=== PATIENT | female | born 1955 | race Caucasian/White ===

== ENCOUNTER 2020-07-24 12:03 | Inpatient (IN) | payer OTHER ==
[~2020-07-24] VITALS: Ht 175.3 cm; Wt 72.6 kg
[~2020-07-24 12:03] MED LIST: IRON325 PO; LIPITOR 20 MG T20 M1 PO; LOSARTAN POTAS100 MG PO; OCUVITE LUTEIN1 EAC2 PO; WOMEN MULTIVIT1 EACH PO
[2020-07-24 12:07] VITALS: BP 180/91
[2020-07-24 12:29] LABS: URINE BILIRUBIN NEGATIVE (Negative); URINE BLOOD TRACE (Negative); URINE CLARITY CLEAR; URINE COLOR YELLOW; URINE GLUCOSE-RANDOM* NEGATIVE (Negative); URINE KETONES NEGATIVE (Negative); URINE LEUKOCYTES-REFLEX 1+ (Negative); URINE NITRITE-REFLEX NEGATIVE (Negative); URINE PROTEIN (DIPSTICK) NEGATIVE (Negative); URINE SPECIFIC GRAVITY >= 1.030 (1.005-1.035); URINE UROBILINOGEN 0.2 E.U./dl (0.2-1.0)
[2020-07-24 12:38] LABS: CASTS None Seen /LPF (None Seen); MUCUS >6 Heavy strn/LPF (None Seen); SQUAMOUS >10 Many /LPF (0-3)
[2020-07-24 12:39] LABS: CRYSTALS None Seen /LPF (None Seen); URINE RBC 0-2 Rare /HPF (0-2); URINE WBC-REFLEX 6-15 Few /HPF (0-5)
[2020-07-24 12:46] LABS: AMP/METHAMP Negative (Negative); BARBITURATES Negative (Negative); BENZODIAZEPINES Negative (Negative); COCAINE Negative (Negative); METHADONE Negative (Negative); OPIATES Negative (Negative); PCP Negative (Negative)
[2020-07-24 12:56] LABS: ABSOLUTE NEUTROPHILS 7.3 thou/uL (1.4-8.2); BASOPHILS 0.5 % (0.0-2.0); EOSINOPHILS 0.6 % (0.0-3.0); HEMATOCRIT 38.8 % (37.0-47.0); HEMOGLOBIN 13.6 gm/dL (12.0-15.0); LYMPHOCYTES 16.8 % (24.0-44.0); MCH 31.2 pg (26.0-34.0); MCV 89.2 fL (80.0-100.0); MONOCYTES 7.2 % (1.0-8.0); PLATELET COUNT 270 thou/uL (150-400); POLYS 74.9 % (36.0-66.0); RBC 4.35 mil/uL (4.20-5.00); WBC 9.7 thou/uL (4.0-11.0)
[2020-07-24 13:01] LABS: ANION GAP 13 mmol/L (7-16); BUN 17 mg/dL (7-18); CALCIUM 9.7 mg/dL (8.5-10.1); CHLORIDE 102 mmol/L (98-107); CO2 25 mmol/L (21-32); GLUCOSE 103 mg/dL (74-106); POTASSIUM 4.6 mmol/L (3.5-5.1); SODIUM 140 mmol/L (136-145)
[2020-07-24 13:11] LABS: ALBUMIN 4.2 g/dL (3.4-5.0); DIRECT BILIRUBIN < 0.1 mg/dL (<0.1-0.2); LIPASE 202 U/L (73-393); MAGNESIUM 2.3 mg/dL (1.8-2.4); PHOSPHORUS 4.4 mg/dL (2.6-4.7); SGOT 29 U/L (15-37); SGPT 26 U/L (14-59); TOTAL BILIRUBIN 0.4 mg/dL (0.2-1.0); TROPONIN-I <0.06 ng/mL (<0.06)
[2020-07-24 15:37] VITALS: BP 137/79
[2020-07-24 15:55] LABS: CHOLESTEROL 235 mg/dL (<200); HDL CHOLESTEROL 77 mg/dL (>40); LDL CHOLESTEROL 120 mg/dL (<100); TC:HDL 3.1 Ratio (Not establshd); TRIGLYCERIDE 191 mg/dL (<150); VLDL 38 mg/dL (<40)
[2020-07-24 16:15] VITALS: BP 147/101
[2020-07-24 16:20] LABS: FOLIC ACID 19.6 ng/mL (8.6-58.9)
[2020-07-24 18:09] VITALS: BP 141/78
[2020-07-24 21:07] VITALS: BP 103/71
[2020-07-25 03:05] LABS: GLYCOHEMOGLOBIN (HGB A1C) 5.7 % (4.8-5.6)
[2020-07-25 04:50] VITALS: BP 133/74
--- NOTE | 2020-07-25 07:45 | EKG ---
[address] [place] [address] ELECTROCARDIOGRAM REPORT Name: MARINA DICKINSON Room #: 455-P ADM IN M.R.#: [id number] Admission: 07/24/20 Attend Phys: Amarilis Sharp MD Discharge: Date of : 57 Report #: [id number] [facility] ED Test Date: 2020-07-24 Test Time: 12:33:05 Pat Name: MARINA DICKINSON Department: Room: [facility] Gender: F Field Training Agent: ANA : 1955 Requested By: Dung Bonilla Order Number: [id number] MD: Roc Warren Measurements Intervals [place] Rate: 88 P: 33 MO: 166 QRS: 8 QRSD: 81 T: 32 QT: 369 QTc: 447 Interpretive Statements Sinus rhythm Probable left atrial enlargement Compared to ECG 03/08/2018 18:33:49 No significant changes Electronically Signed On 07-25-2020 7:45:09 [employer] by Roc Warren [email or web address] <ELECTRONICALLY SIGNED> By: Roc Warren MD, [facility] 07/25/20 0745 1233 1233 Roc Warren MD, FACC /EPI
[2020-07-25 08:42] VITALS: BP 124/82
--- NOTE | 2020-07-25 12:31 | 2DMMODE ---
[facility] [place] [address] 2 D/M-MODE ECHOCARDIOGRAM Name: MARINA DICKINSON Room #: 455-P ADM IN .R.#: [id number] Admission: 07/24/20 Attend Phys: Amarilis Sharp MD Discharge: Date of : 57 Report #: [id number] THIS REPORT FOR: cc: Sebastien Howard MD, Rene P. MD Santiago, Patrick MD [facility] ~ APPROVED REPORT Study performed: 07/25/2020 11:38:49 EXAM: Comprehensive 2D, Doppler, and color-flow Echocardiogram Patient Location: Bedside Room #: [facility] Status: routine BSA: 1.88 HR: 89 bpm BP: 124/83 mmHg Rhythm: NSR Other Information Study Quality: Good Indications TIA, HTN, HLP. Echo Enhancing Agent Indication: Rule out Shunt Agent(s) / Amount(s) Used: Agitated Saline 7 cc 2D Dimensions RVDd: 30.22 mm IVSd: 11.17 (7-11mm) LVOT Diam: 21.25 (18-24mm) LVDd: 41.78 mm PWd: 8.10 (7-11mm) LVDs: 26.34 (25-40mm) Aortic Root: 30.32 mm Volumes Left Atrial Volume (Systole) Single Plane 4CH: 55.05 mL Single Plane 2CH: 56.26 mL LA ESV Index: 31.00 mL/m2 Aortic Valve AoV Peak Armando.: 1.59 m/s [facility] [address] [place] [address] 2 D/M-MODE ECHOCARDIOGRAM Name: ALOKMARINA F Room #: 455-P [facility] IN ..#: [id number] Admission: 07/24/20 Attend Phys: Amarilis Sharp MD Discharge: Date of : 57 Report #: [id number] AO Peak Gr.: 10.17 mmHg LVOT Max P.02 mmHg LVOT Max V: 1.12 m/s ABHILASH Vmax: 2.49 cm2 Mitral Valve E/A Ratio: 0.8 MV Decel. Time: 346.86 ms MV E Max Armando.: 0.83 m/s MV A Armando.: 1.10 m/s MV PHT: 100.59 ms IVRT: 69.20 ms Pulmonary Valve PV Peak Armando.: 1.01 m/s PV Peak Gr.: 4.06 mmHg Pulmonary Vein P Vein S: 0.51 m/s P Vein A: 0.28 m/s P Vein D: 0.40 m/s P Vein A Dur.: 114.2 msec P Vein S/D Ratio: 1.27 Tricuspid Valve TR Peak Armando.: 2.43 m/s RAP Estimate: 5.00 mmHg TR Peak Gr.: 24.00 mmHg PA Pressure: 29.00 mmHg Left Ventricle The left ventricle is normal size. There is normal LV segmental wall motion. There is normal left ventricular wall thickness. Left ventricular systolic function is normal. LVEF is 55-60%. Mild diastolic dysfunction is present (impaired relaxation pattern). Right Ventricle The right ventricle is normal size. The right ventricular systolic function is normal. Atria The left atrium size is normal. No shunting noted with contrast bubble injection. The right atrium size is normal. Aortic Valve The aortic valve is normal in structure; mildly sclerotic. No aortic regurgitation is present. There is no aortic valvular stenosis. Mitral Valve [facility] [address] [place] [address] 2 D/M-MODE ECHOCARDIOGRAM Name: MARINA DICKINSON Room #: 455-P ADM IN M.R.#: [id number] Admission: 07/24/20 Attend Phys: Amarilis Sharp MD Discharge: Date of : 57 Report #: [id number] The mitral valve is normal in structure. Mild mitral annular calcification. There is no mitral valve regurgitation noted. No evidence of mitral valve stenosis. Tricuspid Valve The tricuspid valve is normal in structure. Trace tricuspid regurgitation. Estimated PAP is 30mmHg. Pulmonic Valve The pulmonary valve is normal in structure. Trace pulmonic regurgitation. Great Vessels The aortic root is normal in size. Ascending aorta is not well visualized. IVC is normal in size and collapses >50% with inspiration. Pericardium There is no pericardial effusion. <Conclusion> Normal left ventricular size/wall thickness Ejection fraction 60% Grade 1 diastolic function Normal right ventricular size/function Normal atrial size Color-flow Doppler study was performed of the aortic/mitral/tricuspid/pulmonary valve Mild aortic valve calcification without stenosis Mild mitral annular calcification Trace tricuspid valve insufficiency Pulmonary artery systolic pressure estimated 30 mmHg No pericardial effusion Normal aortic root size <ELECTRONICALLY SIGNED> By: Roc Warren MD, FACC 07/25/20 1231 1231 1231 Roc Warren MD, FACC /INF
[2020-07-25 16:27] VITALS: BP 136/72
[2020-07-25 20:14] VITALS: BP 135/83
[2020-07-26 07:26] VITALS: BP 151/96
[2020-07-26 08:25] LABS: MCH 29.9 pg (26.0-34.0); MCHC 33.3 g/dL (28.0-37.0); MCV 89.9 fL (80.0-100.0); RBC 3.89 mil/uL (4.20-5.00); WBC 6.2 thou/uL (4.0-11.0)
[2020-07-26 08:26] LABS: CALCIUM 8.4 mg/dL (8.5-10.1)
[2020-07-26 08:27] LABS: HEMOGLOBIN 11.6 gm/dL (12.0-15.0)
[2020-07-26] MEDS ORDERED: ADULT LOW DOSE81 MG PO (10:05)
[2020-07-26 12:52] VITALS: BP 151/96
[2020-07-26] MEDS ORDERED: KEFLEX500 M1 PO (15:51)
--- NOTE | 2020-08-03 03:46 | HC ---
[facility] [place] [address] CONSULTATION Name: MARINA DICKINSON Room #: 455-P [facility] IN ..#: [id number] Admission: 07/24/20 Attend Phys: Amarilis Sharp MD Discharge: 07/26/20 Date of : 57 Report #: [id number] THIS REPORT FOR: cc: Sebastien Howard MD, Rene P. MD Khosla, Parveen K. MD ~ DATE OF SERVICE: 07/25/2020 HISTORY OF PRESENT ILLNESS: This is a 64-year-old female patient who was seen by me in episode where she kept repeating things and she did not have any memory formation. This happened yesterday and then she spontaneously returned back to normal. I reviewed her old record and she was here in 2018 and she had a similar episode that time. She had a CT angiogram of the head and MRI which was unremarkable and she had a carotid Doppler as well as MRI of the brain this time. MRI results are still pending. She said she was under stress because her has committed suicide because on-the-job injury has produced disability and pain and he could not handle. She does not drink alcohol and she believes she was dehydrated. REVIEW OF SYSTEMS: A 14-point review of system was carried out. This patient has started to develop some atherosclerotic disease. Last time, she was recommended to follow up with the primary for the management of that. She does have some surgery on the thyroid. She does have a history of hypertension. She denies any significant alcohol intact. She says she does drink alcohol once a while. That was a relevant 14-point review of system. PAST MEDICAL HISTORY: Positive for another episode of what looks like transient global amnesia. FAMILY HISTORY: Negative for seizure. It is positive for cardiac problem. SOCIAL HISTORY: She does not smoke, has not smoked for a long time. She drinks alcohol, but on special occasions only. PHYSICAL EXAMINATION: Indicates she is alert, responsive, able to follow simple command. Her speech looks intact. She is able to tell me month and the year and she is able to tell me the president and the funeral service licensee. She knows what hospital she is in. She has no memory formation of the episode yesterday and she cannot recall those. Cranial nerve examinations appear unremarkable. Strength, sensation, reflexes and tone is symmetrical. There is no cerebellar sign. I could not look at the patient's fundus. There is no meningeal sign. There is no carotid bruit. Cardiorespiratory examination is unremarkable. No respiratory difficulty was noticed. Blood pressure is 124/82, pulse rate is 80, and temperature is 97.2. She does have problem with the thyroid. She still has dyslipidemia. [facility] [address] [place] [address] CONSULTATION Name: COURT DICKINSONE Kylie Room #: 455-P [facility] IN M.R.#: [id number] Admission: 07/24/20 Attend Phys: Amarilis Sharp MD Discharge: 07/26/20 Date of : 57 Report #: [id number] IMPRESSION: As far at the present episode is concerned that appeared to be transient global amnesia. It is uncommon to have more than one episode of transient global amnesia, but that can occur. We will get the regular workup done and I agree with your management until the workup shows any abnormality, I do not think much management would be needed. I noticed the possibility of a psychiatric consult and that is reasonable since it is the second episode, but neurologically if other workup is unremarkable from my perspective, she can be dismissed. Thank you very much for this referral. <ELECTRONICALLY SIGNED> By: Link Magallon MD 08/03/20 0346 1503 1535 Link Magallon MD /nt
--- NOTE | 2020-08-03 14:54 | EEG ---
[facility] [place] [address] ELECTROENCEPHALOGRAM Name: MARINA DICKINSON Room #: 455-P [facility] IN M.R.#: [id number] Admission: 07/24/20 Attend Phys: Amarilis Sharp MD Discharge: 07/26/20 Date of : 57 Report #: [id number] THIS REPORT FOR: //name// DATE OF SERVICE: 07/25/2020 This patient had an episode where she lost her memory. EEG was done to evaluate the possibility of seizure. EEG was done by placing the electrode by standard 10-20 system of electrode placement. Both referential and sequential montages were used for recording. Background activity in this patient's EEG is about 9 Hz and 30 microvolt. Large portion of this EEG was obtained when the patient was asleep that is associated with bilateral slowing and vertex sharp waves. Throughout the record, no active epileptiform activity was noticed. Photic stimulation is unremarkable. IMPRESSION: This patient's EEG is unremarkable and does not demonstrate any active epileptiform activity. It might be mentioned that EEG can be normal in a patient with seizure disorder. Therefore, clinical correlation is recommended. <ELECTRONICALLY SIGNED> By: Link Magallon MD 08/03/20 1454 1627 1642 Link Magallon MD /nt
== END 2020-07-26 14:40 | disposition home or self-care (01) | DRG 71 ==
LOC: ER 12:03 → EROBS 14:58 → 4W 14:58
PROVIDERS: Emergency Medicine; Internal Medicine; ADMIT Internal Medicine; ATTEND Internal Medicine
DX: G45.4 Transient global amnesia (principal); N39.0 Urinary tract infection, site not specified; E53.8 Deficiency of other specified B group vitamins; E55.9 Vitamin D deficiency, unspecified; E04.1 Nontoxic single thyroid nodule; F32.9 Major depressive disorder, single episode, unspecified; F41.9 Anxiety disorder, unspecified; I10 Essential (primary) hypertension; E78.5 Hyperlipidemia, unspecified; Z79.899 Other long term (current) drug therapy; Z85.850 Personal history of malignant neoplasm of thyroid
CPT/HCPCS: 10040; 10045

== ENCOUNTER → 2020-09-16 | Outpatient (CLI) | payer OTHER ==
[~2020-09-16] MED LIST changes: +ADULT LOW DOSE81 MG PO; +KEFLEX500 M1 PO
--- NOTE | 2020-09-20 13:08 | PATH ---
[facility] [address] PATHOLOGY RPT PROCEDURE Name: MARINA DICKINSON Room #: REG [facility]#: [id number] Admission: 09/16/20 Date of : 57 Discharge: Report #: [id number] Path Case #: [id number] Note [facility] Accession Number: [id number] TESTS RESULT FLAG UNITS REF RANGE LAB Clinician Provided Cytology Information No. of containers..01 Other (Miscellaneous) Source: 01 LT SUP-UPPER THYROID DIAGNOSIS: 02 LEFT SUP-UPPER THYROID INCONCLUSIVE. BETHESDA CATEGORY III. FOLLICULAR LESION OF UNDETERMINED SIGNIFICANCE. SPECIMEN CONSISTS OF ABUNDANT FOLLICULAR CELLS WITH SCANT COLLOID. THE DIFFERENTIAL DIAGNOSIS INCLUDES CELLULAR ADENOMATOID NODULE AND FOLLICULAR NEOPLASM. WATERY AND DENSE COLLOID IS PRESENT. THIS INTERPRETATION INCLUDES EVALUATION OF A CELL BLOCK. Comment: A few nuclear membrane irregularities are noted although three dimensional groups and other features suggestive of papillary thyroid carcinoma are not seen. The retain vial is sent for additional studies and the results will be reported in an addendum to follow. Please note sample may not be entirely inbound call center representative; correlate clinically and follow-up as indicated. Pathologist ICD10: 02 E04.1 Signed out by: Salma Dyson MD, Pathologist NPI- [id number] Performed by: 01 Muriel Crespo, Audograph Operator (ASCP) Gross description: 01 25ML, CLEAR COLORLESS, 3FX 3AD /LCS 09/17/2020 0932 Local FLAG LEGEND: L-Low Normal,H-High Normal,LL-Alert Low,HH-Alert High <-Panic Low,>-Panic High,A-Abnormal,AA-Critical Abnormal Performed at: [facility] [address] [place] [address] Bhavesh Barbosa MD, 02 [facility] [address] [address] PATHOLOGY RPT PROCEDURE Name: MARINA DICKINSON Room #: REG CL Marcos#: [id number] Admission: 09/16/20 Date of : 57 Discharge: Report #: [id number] Path Case #: [id number] [address] [place] [address] Nany Dyson MD, Specimen Comment: A courtesy copy of this report has been sent to [phone] Specimen Comment: [phone] Specimen Comment: [id number] Specimen Comment: Report sent to / DR GALLEGOS Performed at: [address], [place] [id number] MD Bhavesh Barbosa MD Phone: [phone]
--- NOTE | 2020-09-20 13:08 | PATH ---
[facility] [place] [address] PATHOLOGY RPT PROCEDURE Name: MARINA DICKINSON Room #: REG [facility].#: [id number] Admission: 09/16/20 Date of : 57 Discharge: Report #: [id number] Path Case #: [id number] Note [facility] Accession Number: [id number] TESTS RESULT FLAG UNITS REF RANGE LAB Clinician Provided Cytology Information No. of containers..01 Other (Miscellaneous) Source: 01 LT INF-MID THYROID DIAGNOSIS: 02 LEFT INF-MID THYROID NEGATIVE FOR MALIGNANT EPITHELIAL CELLS. BETHESDA CATEGORY II. SPECIMEN CONSISTS OF ABUNDANT GROUPS OF FOLLICULAR CELLS, HEMOSIDERIN-LADEN MACROPHAGES, COLLOID AND BLOOD. THE PATTERN IS COMPATIBLE WITH ADENOMATOID NODULE. WATERY AND DENSE COLLOID IS PRESENT. THIS INTERPRETATION INCLUDES EVALUATION OF A CELL BLOCK. NEGATIVE FOR NUCLEAR FEATURES OF PAPILLARY THYROID CARCINOMA. Comment: Please note sample may not be entirely education courses sales representative; correlate clinically and follow-up as indicated. Pathologist ICD10: 02 E04.1 Signed out by: 02 Nany Dyson MD, Pathologist NPI- [id number] Performed by: Muriel Crespo, Blind Aide ([facility]) Gross description: 01 25ML, CLEAR COLORLESS, 3FX 3AD /LCS 09/17/2020 0930 Local FLAG LEGEND: L-Low Normal,H-High Normal,LL-Alert Low,HH-Alert High <-Panic Low,>-Panic High,A-Abnormal,AA-Critical Abnormal Performed at: 01 [facility] [address] [place] [address] Bhavesh Barbosa MD, [address] [address] Nany Dyson MD, Specimen Comment: A courtesy copy of this report has been sent to [phone] Specimen Comment: [id number] Specimen Comment: Report sent to / DR GALLEGOS [address] [address] PATHOLOGY RPT PROCEDURE Name: ALOKMARINA Espinal Room #: REG JON Rodríguez#: [id number] Admission: 09/16/20 Date of : 57 Discharge: Report #: [id number] Path Case #: [id number] Performed at: 01 [facility] [address], [place], [place] [id number] MD Bhavesh Barbosa MD Phone: [phone]
== END | disposition home or self-care (01) ==
LOC: ULTRA 10:33
PROVIDERS: ATTEND Otolaryngology
DX: E04.1 Nontoxic single thyroid nodule (principal)